=== PATIENT | female | born 1950 | race Caucasian/White ===

== ENCOUNTER 2021-04-26 08:01 | Emergency (ER) | payer MEDICARE, OTHER ==
[~2021-04-26] VITALS: Ht 157.5 cm; Wt 86.2 kg
[2021-04-26] MEDS ORDERED: HYDROCODON-ACE1 EA10 PO (09:16)
[2021-04-26] MEDS ORDERED: CYCLOBENZAPRINE10 MG PO (09:16)
[2021-04-26] MEDS ORDERED: ONDANSETRON ODT8 MG PO (09:16)
== END 2021-04-26 09:31 | disposition home or self-care (01) ==
LOC: ED 08:01
DX: M54.42 Lumbago with sciatica, left side (principal)
CPT/HCPCS: 96372; 99283; J1885